=== PATIENT | male | born 1960 | race Caucasian/White ===

== ENCOUNTER 2024-02-25 19:03 | Emergency (ER) | payer MEDICAID, SELFPAY ==
[~2024-02-25] VITALS: Ht 160 cm; Wt 54.5 kg
[~2024-02-25 19:03] MED LIST: GABA-531 PO
[2024-02-25 19:25] VITALS: BP 156/91; PULSE 74; RESP 17; TEMP 98.2
[2024-02-25 19:41] LABS: BASOPHILS % (AUTO) 0.6 % (0.0-2.0); EOSINOPHILS % (AUTO) 2.6 % (1.0-6.0); HEMATOCRIT 37.9 % (41-53); HEMOGLOBIN 12.4 g/dL (13.5-17.5); LYMPHOCYTES # (AUTO) 0.7 K/uL (1.0-4.8); MEAN CORPUSCULAR HEMOGLOBIN 28.7 pg (26.0-34.0); MEAN CORPUSCULAR HGB CONC 32.9 G/dL (31.0-37.0); MEAN CORPUSCULAR VOLUME 87 fL (80-100); MONOCYTES # (AUTO) 0.5 K/uL (0.1-1.0); NEUTROPHILS # (AUTO) 2.5 K/uL (1.8-7.7); NEUTROPHILS % (AUTO) 65.8 % (40.0-70.0); PLATELET COUNT (AUTO) 123 K/uL (150-450); RED BLOOD CELL COUNT(AUTO) 4.34 MIL/uL (4.50-5.90); RED CELL DISTRIBUTION WIDTH 14.1 % (11.5-14.5); WHITE BLOOD COUNT (AUTO) 3.8 K/uL (4.5-11.0)
[2024-02-25 19:48] LABS: ANION GAP 3 mmol/L (8-16); CALCIUM, TOTAL 9.7 mg/dL (8.8-10.5); CARBON DIOXIDE 36 mmol/L (22-29); CHLORIDE 104 mmol/L (98-107); CREATININE 1.02 mg/dL (0.60-1.30); GLOMERULAR FILTR. RATE CALC > 60 mL/min (>60); GLUCOSE,RANDOM 111 mg/dL (70-110); POTASSIUM 3.9 mmol/L (3.5-5.1); SODIUM SERUM 143 mmol/L (136-145); UREA NITROGEN, BLOOD 24 mg/dL (7-18)
[2024-02-25 19:52] LABS: RBC MORPHOLOGY COMMENT NORMAL RBC MORPH
[2024-02-25 20:03] LABS: ALCOHOL, BLOOD (SERUM) < 3 mg/dL (0-10)
[2024-02-25 20:38] LABS: COVID AG,FIA SOURCE NASAL SWAB
[2024-02-25 20:55] LABS: SARS-COV2 (COVID) ANTIGEN,FIA Negative (Negative)
[2024-02-25 21:56] LABS: PH,URINE DRUG SCREEN 7.5 (5.0-8.0)
[2024-02-25 22:03] LABS: AMPHET/METH SCREEN,URINE NEGATIVE (NEGATIVE); BARBITURATE SCREEN, URINE NEGATIVE (NEGATIVE); BENZODIAZEPINES SCREEN,URINE NEGATIVE (NEGATIVE); CANNABINOID SCREEN,URINE NEGATIVE (NEGATIVE); COCAINE SCREEN,URINE NEGATIVE (NEGATIVE); METHADONE SCREEN, URINE NEGATIVE (NEGATIVE); OPIATE SCREEN,URINE NEGATIVE (NEGATIVE); PHENCYCLIDINE SCREEN,URINE NEGATIVE (NEGATIVE)
[2024-02-25 22:04] LABS: ALCOHOL, URINE DRUG SCREEN NEGATIVE (NEGATIVE)
[2024-02-26] MEDS ORDERED: BICT1TAB PO (05:01)
[2024-02-26] MEDS ORDERED: OLAN10TA74 PO (20:00)
== END 2024-02-25 22:44 ==
LOC: EMS 19:03
DX: Z04.6 Encounter for general psychiatric examination, requested by authority (principal); F10.129 Alcohol abuse with intoxication, unspecified; R45.851 Suicidal ideations; F17.210 Nicotine dependence, cigarettes, uncomplicated; Z79.899 Other long term (current) drug therapy; Z20.822 Contact with and (suspected) exposure to COVID-19; Y90.6 Blood alcohol level of 120-199 mg/100 ml
CPT/HCPCS: 99285; 87426; 80048; 85025; 36415; 80307; G0480

== ENCOUNTER 2024-02-26 19:53 | Inpatient (IN) | payer MEDICAID ==
[~2024-02-26] VITALS: Ht 167.6 cm; Wt 67.1 kg
[~2024-02-26 19:53] MED LIST changes: +BICT1TAB PO
[2024-02-26] MEDS ORDERED: OLAN10TA74 PO (20:00)
[2024-02-26] MEDS ORDERED: GuaiFENesin/D-METHORPHAN [SUGAR-FREE] 200-20MG/10 ML SYRUP UDCUP PO PRN (21:45)
[2024-02-26] MEDS ORDERED: TUBERCULIN, PURIFIED PROTEIN DERIVATIVE 5 TU/0.1 ML SYRINGE ID ONE (21:45)
[2024-02-26] MEDS ORDERED: PROMETHAZINE HCL 25 MG TABLET PO PRN (21:45)
[2024-02-26] MEDS ORDERED: MAG HYDROX/ALUMINUM HYD/SIMETH ES 30 ML SUSPENSION UDCUP PO PRN (21:45)
[2024-02-26] MEDS ORDERED: ZOLPIDEM TARTRATE 10 MG TABLET PO PRN (21:45)
[2024-02-26] MEDS ORDERED: LOPERAMIDE HCL 2 MG CAPSULE PO PRN (21:45)
[2024-02-26] MEDS ORDERED: MAGNESIUM HYDROXIDE SUSPENSION 30 ML UDCUP PO PRN (21:45)
[2024-02-26 22:00] VITALS: BP 129/75; PULSE 99; RESP 17; TEMP 98; O2SAT 99
[2024-02-27] LABS: GLUCOMETER DEV NAME(LOC) POC.BV; POC SARS-COV2 AG, FIA NEGATIVE (NEGATIVE)
[2024-02-27 08:00] VITALS: BP 150/84; PULSE 61; RESP 16; TEMP 98.6; O2SAT 100
[2024-02-27] MEDS: OLANZapine 5 MG RAPDIS TABLET PO PRN (08:49)
[2024-02-27] MEDS: FOLIC ACID 1 MG TABLET PO SCH (08:49)
[2024-02-27] MEDS: LORazepam 2 MG TABLET PO PRN (08:49)
[2024-02-27] MEDS: MULTIVITAMINS WITH MINERALS, THERAPEUTIC TABLET PO SCH (08:49)
[2024-02-27] MEDS: NALTREXONE HCL 50 MG TABLET PO SCH (08:49)
[2024-02-27] MEDS: THIAMINE 100 MG TABLET PO SCH (08:49)
[2024-02-27] MEDS: FLUoxetine HCL 20 MG CAPSULE PO SCH (08:52)
[2024-02-27] MEDS: PALIPERIDONE PALMITATE 234 MG/1.5 ML SYRINGE IM ONE (09:00)
[2024-02-27 09:09] LABS: BASOPHILS % (AUTO) 0.5 % (0.0-2.0); EOSINOPHILS % (AUTO) 1.6 % (1.0-6.0); HEMATOCRIT 45.9 % (41-53); HEMOGLOBIN 14.8 g/dL (13.5-17.5); LYMPHOCYTES # (AUTO) 0.8 K/uL (1.0-4.8); LYMPHOCYTES % (AUTO) 17.3 % (22.0-44.0); MEAN CORPUSCULAR HEMOGLOBIN 28.5 pg (26.0-34.0); MEAN CORPUSCULAR HGB CONC 32.2 G/dL (31.0-37.0); MEAN CORPUSCULAR VOLUME 88 fL (80-100); MONOCYTES # (AUTO) 0.3 K/uL (0.1-1.0); NEUTROPHILS # (AUTO) 3.3 K/uL (1.8-7.7); NEUTROPHILS % (AUTO) 74.6 % (40.0-70.0); PLATELET COUNT (AUTO) 144 K/uL (150-450); RED BLOOD CELL COUNT(AUTO) 5.19 MIL/uL (4.50-5.90); RED CELL DISTRIBUTION WIDTH 14.1 % (11.5-14.5); WHITE BLOOD COUNT (AUTO) 4.4 K/uL (4.5-11.0)
[2024-02-27 09:26] LABS: HEMOGLOBIN A1C 5.6 % (3.8-5.6)
[2024-02-27 09:41] LABS: ALANINE AMINOTRANSFERASE 41 U/L (12-78); ALKALINE PHOSPHATASE 68 U/L (46-116); ANION GAP 0 mmol/L (8-16); ASPARTATE AMINOTRANSFERASE 33 U/L (15-37); BILIRUBIN,TOTAL 0.3 mg/dL (0.1-1.0); CALCIUM, TOTAL 9.4 mg/dL (8.8-10.5); CARBON DIOXIDE 33 mmol/L (22-29); CHLORIDE 105 mmol/L (98-107); CREATININE 1.09 mg/dL (0.60-1.30); FREE T4 (FREE THYROXINE) 0.75 ng/dL (0.76-1.46); GLOMERULAR FILTR. RATE CALC > 60 mL/min (>60); GLUCOSE,RANDOM 102 mg/dL (70-110); POTASSIUM 3.9 mmol/L (3.5-5.1); SODIUM SERUM 138 mmol/L (136-145); THYROID STIMULATING HORMONE 1.15 uIU/mL (0.36-3.74); TOTAL PROTEIN, SERUM 7.8 g/dL (6.4-8.2); UREA NITROGEN, BLOOD 25 mg/dL (7-18)
[2024-02-27] MEDS: NICOTINE 7 MG/24 HOUR PATCH TD SCH (11:15)
[2024-02-27] MEDS: DIVALPROEX SODIUM 500 MG ER TABLET PO SCH (20:55)
[2024-02-27] MEDS: MELATONIN 5 MG TABLET PO SCH (20:55)
[2024-02-27] MEDS: OLANZapine 5 MG RAPDIS TABLET PO SCH (20:55)
[2024-02-28] MEDS: BICTEGRAV/EMTRICIT/TENOFOV ALA 50-200-25 MG TABLET PO SCH (08:39)
[2024-02-28 09:14] VITALS: BP 141/91; PULSE 70; RESP 18; TEMP 97.7; O2SAT 99
[2024-02-28 20:23] VITALS: BP 156/85; PULSE 93; RESP 16; TEMP 98.4; O2SAT 100
[2024-02-28] MEDS: OLANZapine 10 MG RAPDIS TABLET PO SCH (20:58)
[2024-02-29 08:34] VITALS: BP 123/84; PULSE 80; RESP 18; TEMP 98.6; O2SAT 97
[2024-02-29 20:23] VITALS: BP 137/94; PULSE 80; RESP 16; TEMP 98.4; O2SAT 95
[2024-03-01 08:56] VITALS: BP 123/79; PULSE 73; RESP 17; TEMP 97.7; O2SAT 100
[2024-03-01] MEDS ORDERED: DiphenhydrAMINE HCL 50 MG/ML VIAL ONE (18:23)
[2024-03-01] MEDS ORDERED: LORazepam 2 MG/ML VIAL ONE (18:23)
[2024-03-01] MEDS ORDERED: HALOPERIDOL LACTATE 5 MG/ML VIAL ONE (18:23)
[2024-03-01] MEDS: LORazepam 2 MG/ML VIAL IM ONE (18:43)
[2024-03-01] MEDS: DiphenhydrAMINE HCL 50 MG/ML VIAL IM ONE (18:43)
[2024-03-01] MEDS: HALOPERIDOL LACTATE 5 MG/ML VIAL IM ONE (18:44)
[2024-03-01 21:26] VITALS: BP 149/89; PULSE 99; O2SAT 99
[2024-03-02 08:22] VITALS: BP 128/75; PULSE 65; RESP 18; TEMP 97.7; O2SAT 99
[2024-03-02 08:37] VITALS: BP 128/75; PULSE 65; RESP 18; TEMP 97.7; O2SAT 98
[2024-03-02] MEDS ORDERED: PALIPERIDONE PALMITATE 156 MG/ML SYRINGE IM ONE (09:00)
[2024-03-02] MEDS: HydrOXYzine PAMOATE 50 MG CAPSULE PO PRN (16:59)
[2024-03-02 20:44] VITALS: BP 137/76; PULSE 89; TEMP 97.8; O2SAT 97
[2024-03-03 08:49] LABS: APPEARANCE,URINE CLEAR (CLEAR); BILIRUBIN,URINE NEGATIVE (NEGATIVE); COLOR,URINE YELLOW (YELLOW); GLUCOSE, URINE (UA) NEGATIVE (NEGATIVE); KETONES,URINE NEGATIVE (NEGATIVE); LEUKOCYTE ESTERASE ,URINE NEGATIVE (NEGATIVE); NITRATE,URINE NEGATIVE (NEGATIVE); OCCULT BLOOD,URINE NEGATIVE (NEGATIVE); PROTEIN,URINE NEGATIVE (NEGATIVE); SPECIFIC GRAVITIY, URINE 1.021 (1.003-1.030); UROBILINOGEN,URINE <=1.0 mg/dL (<=1.0)
[2024-03-03 08:53] LABS: ALCOHOL, URINE DRUG SCREEN NEGATIVE (NEGATIVE); AMPHET/METH SCREEN,URINE NEGATIVE (NEGATIVE); BARBITURATE SCREEN, URINE NEGATIVE (NEGATIVE); BENZODIAZEPINES SCREEN,URINE NEGATIVE (NEGATIVE); CANNABINOID SCREEN,URINE NEGATIVE (NEGATIVE); COCAINE SCREEN,URINE NEGATIVE (NEGATIVE); METHADONE SCREEN, URINE NEGATIVE (NEGATIVE); OPIATE SCREEN,URINE NEGATIVE (NEGATIVE); PHENCYCLIDINE SCREEN,URINE NEGATIVE (NEGATIVE)
[2024-03-03 20:15] VITALS: BP 127/94; PULSE 105; RESP 18; TEMP 97.6; O2SAT 98
[2024-03-03 20:27] VITALS: BP 125/95; PULSE 108; TEMP 98.1; O2SAT 97
[2024-03-03] MEDS: ACETAMINOPHEN 325 MG TABLET PO PRN (20:54)
[2024-03-03 21:00] VITALS: BP 114/85; PULSE 100; RESP 18; TEMP 98; O2SAT 97
[2024-03-03 21:30] VITALS: BP 110/69; PULSE 72; RESP 18; TEMP 97.7; O2SAT 97
[2024-03-04 04:05] VITALS: BP 114/60; PULSE 73; RESP 18; TEMP 97.7; O2SAT 98
[2024-03-04 08:22] VITALS: BP 148/78; PULSE 71; RESP 18; TEMP 97.7; O2SAT 99
[2024-03-04] MEDS ORDERED: HALOPERIDOL LACTATE 5 MG/ML VIAL IM ONE (10:00)
[2024-03-04] MEDS ORDERED: LORazepam 2 MG/ML VIAL IM ONE (10:00)
[2024-03-04] MEDS ORDERED: DiphenhydrAMINE HCL 50 MG/ML VIAL IM ONE (10:00)
[2024-03-04] MEDS: PALIPERIDONE PALMITATE 234 MG/1.5 ML SYRINGE IM ONE (10:10)
[2024-03-04 14:24] VITALS: BP 124/64; PULSE 70; RESP 17; TEMP 97.3; O2SAT 98
[2024-03-04 20:52] VITALS: BP 136/77; PULSE 94; TEMP 98.9; O2SAT 97
[2024-03-04 22:30] VITALS: BP 136/77; RESP 18; TEMP 98.7; O2SAT 94
[2024-03-05] MEDS: PARoxetine HCL 20 MG TABLET PO SCH (08:28)
[2024-03-05 08:33] VITALS: BP 131/76; PULSE 93; RESP 16; TEMP 98.2; O2SAT 100
[2024-03-05 12:06] VITALS: BP 131/76; PULSE 93; RESP 16; TEMP 98.2; O2SAT 100
[2024-03-07] MEDS ORDERED: PALIPERIDONE PALMITATE 156 MG/ML SYRINGE IM ONE (09:00)
== END 2024-03-05 22:11 | disposition left against medical advice (07) | DRG 750 ==
LOC: B3A 20:14
PROVIDERS: ADMIT Psychiatry & Neurology Psychiatry; ATTEND Psychiatry & Neurology Psychiatry
PROC: GZHZZZZ Group Psychotherapy (ICD-10-PCS; principal; 2024-02-26)
PROC: GZ51ZZZ Individual Psychotherapy, Behavioral (ICD-10-PCS; 2024-02-26)
DX: F20.9 Schizophrenia, unspecified (principal); G93.41 Metabolic encephalopathy; D69.6 Thrombocytopenia, unspecified; R56.9 Unspecified convulsions; Z91.148 Patient's other noncompliance with medication regimen for other reason; B19.20 Unspecified viral hepatitis C without hepatic coma; Z20.822 Contact with and (suspected) exposure to COVID-19; D72.819 Decreased white blood cell count, unspecified; F11.90 Opioid use, unspecified, uncomplicated; F17.200 Nicotine dependence, unspecified, uncomplicated; J44.9 Chronic obstructive pulmonary disease, unspecified; F10.20 Alcohol dependence, uncomplicated; Z53.29 Procedure and treatment not carried out because of patient's decision for other reasons; Z79.899 Other long term (current) drug therapy
CPT/HCPCS: 80053; 80164; 80307; 81003; 83036; 84436; 84439; 84443; 85025; 86592; J1200; J1630; J2060; 36415-L1; 36415-TC; J2426; Z7610

== ENCOUNTER 2024-03-03 22:38 | Emergency (ER) | payer MEDICAID ==
[~2024-03-03] VITALS: Ht 172.7 cm; Wt 81.8 kg
[~2024-03-03 22:38] MED LIST changes: -GABA-531 PO; +OLAN10TA74 PO
[2024-03-04 00:19] VITALS: TEMP 97.9
[2024-03-04 00:21] VITALS: BP 116/60; PULSE 81; RESP 16
== END 2024-03-04 03:57 ==
LOC: EMS 22:38
DX: S09.90XA Unspecified injury of head, initial encounter (principal); F17.210 Nicotine dependence, cigarettes, uncomplicated; X58.XXXA Exposure to other specified factors, initial encounter; Y93.89 Activity, other specified; Y92.89 Other specified places as the place of occurrence of the external cause; Y99.8 Other external cause status
CPT/HCPCS: 70450; 72125; 99284

== ENCOUNTER 2024-11-15 20:08 | Emergency (ER) | payer MEDICAID ==
[~2024-11-15] VITALS: Ht 172.7 cm; Wt 81.8 kg
[2024-11-15 20:31] VITALS: TEMP 98.5
[2024-11-15] MEDS ORDERED: IBUPROFEN 600 MG TABLET ONE (22:36)
[2024-11-15] MEDS ORDERED: ACETAMINOPHEN 500 MG TABLET ONE (22:36)
[2024-11-15 22:43] VITALS: BP 138/88; PULSE 87; RESP 18; O2SAT 98
[2024-11-15] MEDS: IBUPROFEN 600 MG TABLET PO ONE (22:49)
[2024-11-15] MEDS: ACETAMINOPHEN 500 MG TABLET PO ONE (22:49)
== END 2024-11-15 22:43 | disposition home or self-care (01) ==
LOC: EMS 20:09
DX: G89.29 Other chronic pain (principal); M54.50 Low back pain, unspecified; F20.9 Schizophrenia, unspecified; F17.210 Nicotine dependence, cigarettes, uncomplicated; Z86.19 Personal history of other infectious and parasitic diseases; Z59.00 Homelessness unspecified
CPT/HCPCS: 99283